=== PATIENT | female | born 1990 | race Caucasian/White ===

== ENCOUNTER 2017-12-21 08:14 | Emergency (ER) | payer OTHER ==
[2017-12-21 08:22] VITALS: BP 107/80; PULSE 99; TEMP 98.5; BMI 27.5
[2017-12-21] MEDS ORDERED: ONDANSETRON *ODT* 4 MG TABLET ONE (08:48)
[2017-12-21] MEDS ORDERED: KETOROLAC TROMETHAMINE 60 MG/2 ML VIAL ONE (08:48)
[2017-12-21] MEDS ORDERED: KETOROLAC TROMETHAMINE 60 MG/2 ML VIAL IM ONE (08:50)
[2017-12-21] MEDS ORDERED: ONDANSETRON *ODT* 4 MG TABLET SL ONE (08:50)
--- NOTE | 2017-12-21 09:03 | PDOC ---
History of Present Illness - General Chief Complaint: Headache Stated Complaint: HEADACHE Time Seen by Provider: 12/21/17 08:29 History Source: Patient Exam Limitations: No Limitations - History of Present Illness Initial Comments: 12/21/17 09:01 27 yr female history of migraines presents with right sided typical migraine headache for 3 days photophobia, phonophobia and nausea. pt took maxalt at home no relief. no fever no neck pain. pt is a nursing program manager. Severity: Yes: mild Episode Description: headache 3 days Past History - Past Medical History Allergies/Adverse Reactions: Allergies Allergy/AdvReac Type Severity Reaction Status Date / Time No Known Allergies Allergy Verified 12/21/17 08:18 Home Medications: Ambulatory Orders NK [No Known Home Medication] 12/21/17 COPD: No Other medical history: migraine headaches, lmp 11/20/2017 - Suicide/Smoking/Psychosocial Hx Smoking History: Never smoked Hx Alcohol Use: No Drug/Substance Use Hx: No *Physical Exam - Vital Signs Last Vital Signs Temp Pulse Resp BP Pulse Ox 98.5 F 99 H 16 107/80 99 12/21/17 08:19 12/21/17 08:19 12/21/17 08:19 12/21/17 08:19 12/21/17 08:19 - Physical Exam General Appearance: Yes: Nourished, Appropriately Dressed HEENT: positive: EOMI, CAMMY, Normal ENT Inspection, TMs Normal Neck: positive: Supple. negative: Tender, Lymphadenopathy (R), Lymphadenopathy (L) Respiratory/Chest: positive: Lungs Clear, Normal Breath Sounds Cardiovascular: positive: Regular Rhythm, Regular Rate Integumentary: positive: Normal Color, Dry, Warm Neurologic: positive: Fully Oriented, Alert, Normal Mood/Affect, Normal Response , Motor Strength 5/5, Finger to Nose (intact) Medical Decision Making - Medical Decision Making 12/21/17 09:02 cc: migraine headache with nausea no vomiting will give zofran and toradol pt stable ambulating steady gait , typical migraine symptoms pt asking for a note to not go to clinicals today 12/21/17 09:21 *DC/Admit/Observation/Transfer Diagnosis at time of Disposition: Migraine Qualifiers: Migraine type: unspecified Status migrainosus presence: with status migrainosus Intractability: intractable Qualified Code(s): G43.911 - Migraine, unspecified, intractable, with status migrainosus - Discharge Dispostion Disposition: HOME Condition at time of disposition: Good - Referrals Referrals: Willis Glover MD [Staff Physician] - - Patient Instructions Additional Instructions: follow with or your neurologist for follow up get pleanty of rest in a quiet dark room today return if worse you can also take benadryl 50mg when you get home to sleep - Post Discharge Activity Forms/Work/School Notes: Back to School
== END 2017-12-21 09:32 | disposition home or self-care (01) ==
LOC: JERFT 08:14
PROC: 3E0233Z Introduction of Anti-inflammatory into Muscle, Percutaneous Approach (ICD-10-PCS; principal; 2017-12-21)
DX: G43.911 Migraine, unspecified, intractable, with status migrainosus (principal)
CPT/HCPCS: 96372; 99281-25; Q0162

== ENCOUNTER 2018-12-21 11:53 | Emergency (ER) | payer OTHER ==
[2018-12-21 12:08] VITALS: BP 143/77; PULSE 94; TEMP 97.5; BMI 29.3
--- NOTE | 2018-12-21 12:31 | PDOC ---
History of Present Illness - General Chief Complaint: Pain Stated Complaint: LF CALF PAIN Time Seen by Provider: 12/21/18 12:05 - History of Present Illness Initial Comments: 12/21/18 12:10 CHIEF COMPLAINT: calf pain HISTORY OF PRESENT ILLNESS: 28 yo F with no significant PMH presents to fast track with pain to L calf x 2 days. Patient reports taking control pills , denies any recent surgery or travel. Patient denies any shortness of breath, chest pain or HAGER. 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 No recent travel or sick contacts. PAST MEDICAL HISTORY: Denies past medical history FAMILY HISTORY: Denies SOCIAL HISTORY: Denies tobacco, alcohol, illicit drug use. SURGICAL HISTORY: Denies ALLERGIES: No known drug allergies REVIEW OF SYSTEMS General/Constitutional: Denies fever or chills. Denies weakness, weight change. HEENT: Denies change in vision. Denies ear pain or discharge. Denies sore throat. Cardiovascular: Denies chest pain or shortness of breath. Respiratory: Denies cough, wheezing, or hemoptysis. Gastrointestinal: Denies nausea, vomiting, diarrhea or constipation. Denies rectal bleeding. Genitourinary: Denies dysuria, frequency, or change in urination. Musculoskeletal: L calf pain. Skin and breasts: Denies rash or easy bruising. Neurologic: Denies headache, vertigo, loss of consciousness, or loss of sensation. Psychiatric: Denies depression or anxiety. PHYSICAL EXAM General Appearance: Well-appearing, appropriately dressed. No apparent distress. HEENT: EOMI, PERRLA, normal ENT inspection, normal voice, TMs normal, pharynx normal. No conjunctival pallor. No photophobia, scleral icterus. Neck: Supple. Trachea midline. No tenderness, rigidity, carotid bruit, stridor , lymphadenopathy, or thyromegaly. Respiratory/Chest: Lungs CTAB. No shortness of breath, chest tenderness, respiratory distress, accessory muscle use. No crackles, rales, rhonchi, stridor , wheezing, dullness Cardiovascular: RRR. S1, S2. No JVD, murmur, bradycardia, tachycardia. Vascular Pulses: Dorsalis-Pedis (R): 2+, Dorsalis-Pedis (L): 2+ Gastrointestinal/Abdominal: Normal bowel sounds. Abdomen soft, non-distended. No tenderness or rebound tenderness. No organomegaly, pulsatile mass, guarding , hernia, hepatomegaly, splenomegaly. Lymphatic: No adenopathy, tenderness. Musculoskeletal/Extremities: Mild tenderness to L calf for deep palpation. No appreciable edema or erythema. No ecchymosis. FROM of all extremities, normal capillary refill. Pelvis Stable. No CVA tenderness. No tenderness to extremities, pedal edema, swelling, erythema or deformity. Integumentary: Appropriate color, dry, warm. No cyanosis, erythema, jaundice or rash Neurologic: independent sales representative II-XII intact. Fully oriented, alert. Appropriate mood/affect. Motor strength 5/5. No appreciable EOM palsy, facial droop or sensory deficit. Past History - Past Medical History Allergies/Adverse Reactions: Allergies Allergy/AdvReac Type Severity Reaction Status Date / Time No Known Allergies Allergy Verified 12/21/17 08:18 Home Medications: Ambulatory Orders Diclofenac Sodium 75 mg PO BID #20 tablet. 12/21/18 COPD: No - Surgical History Appendectomy: Yes - Immunization History Immunization Up to Date: Yes - Psycho Social/Smoking Cessation Hx Smoking History: Never smoked Hx Alcohol Use: No Drug/Substance Use Hx: No *Physical Exam - Vital Signs Last Vital Signs Temp Pulse Resp BP Pulse Ox 97.5 F L 94 H 20 143/77 99 12/21/18 12:05 12/21/18 12:05 12/21/18 12:05 12/21/18 12:05 12/21/18 12:05 ED Treatment Course - RADIOLOGY Radiology Studies Ordered: Category Date Time Status DUPLEX VASCUL US-1 LEG [US] Stat Ultrasound 12/21/18 12:08 Ordered Medical Decision Making - Medical Decision Making 12/21/18 12:31 28 yo F with no significant PMH presents to fast track with pain to L calf x 2 days. US L leg r/o dvt 12/21/18 13:35 US negative for DVT. -motrin for pain Advised patient to take medication as prescribed and follow up with PCP within the next week. Advised patient of signs and symptoms for return to ED. Patient verbalized understanding and agrees to plan. Discharge - Discharge Information Problems reviewed: Yes Clinical Impression/Diagnosis: Strain of calf muscle Qualifiers: Encounter type: initial encounter Laterality: right Qualified Code(s): S86.811A - Strain of other muscle(s) and tendon(s) at lower leg level, right leg , initial encounter Condition: Stable Disposition: HOME - Admission No - Additional Discharge Information Prescriptions: Diclofenac Sodium 75 mg PO BID #20 tablet.dr - Follow up/Referral Referrals: Ty James MD [Staff Physician] - - Patient Discharge Instructions Patient Printed Discharge Instructions: DI for Calf Muscle Strain Additional Instructions: Your ultrasound was negative for any clots today. Please take medications as prescribed. Follow up with your primary care doctor within the next week for continued monitoring of your symptoms. If you develop swelling, redness, warmth , increased pain, shortness of breath, chest pain, or any new or worsening symptoms, please return to the ER immediately. - Post Discharge Activity
[2018-12-21] MEDS ORDERED: IBUPROFEN 600 MG TABLET (FP) PO ONE (13:34)
== END 2018-12-21 13:43 | disposition home or self-care (01) ==
LOC: JERFT 11:53
DX: S86.811A Strain of other muscle(s) and tendon(s) at lower leg level, right leg, initial encounter (principal)
CPT/HCPCS: 93971-TC; 99281-25